=== PATIENT | female | born 1980 | race Caucasian/White ===

== ENCOUNTER 2016-10-12 07:46 | Emergency (ER) | payer MEDICAID ==
[~2016-10-12] VITALS: Ht 170.2 cm; Wt 60.0 kg
[~2016-10-12 07:46] MED LIST: ACYC400T PO; COMPTAB16 PO; DIFL150T PO; IBUP800T23 PO
[2016-10-12 07:49] VITALS: BP 119/67; PULSE 104; RESP 16; TEMP 98.4; O2SAT 98
[2016-10-12] MEDS ORDERED: FERR325T15 PO (08:29)
[2016-10-12] MEDS ORDERED: ALBU6.7H INH (08:31)
[2016-10-12] MEDS ORDERED: ONDA1TAB17 PO (08:31)
[2016-10-12] MEDS ORDERED: LEVO500T3 PO (08:31)
[2016-10-12] MEDS ORDERED: ACYC400T PO (08:31)
[2016-10-12] MEDS ORDERED: EMTR1TAB2 PO (08:31)
[2016-10-12] MEDS ORDERED: DAPS1TAB2 PO (08:31)
[2016-10-12] MEDS ORDERED: SODIUM CHLORIDE 0.9% FLUSH 5 ML FLUSH IVF PRN (09:00)
[2016-10-12] MEDS ORDERED: SODIUM CHLOR 0.9% 1000 ML INJ 1,000 ML IV ONE (09:00)
[2016-10-12] MEDS ORDERED: KETOROLAC TROMETHAMINE 30 MG/ML (IVP) VIAL IV PUSH ONE (09:00)
[2016-10-12 09:53] VITALS: RESP 16; O2SAT 96
[2016-10-12 09:54] VITALS: BP_SYST 109; BP_SYST 111; BP_DIAS 56; BP_DIAS 59
[2016-10-12 10:38] LABS: APTT (PATIENT) 26.4 SEC (24.3-30.1)
[2016-10-12 10:41] LABS: AUTOMATED NEUTROPHIL # 4.7 TH/MM3 (1.8-7.7); BASOPHIL % 0.5 % (0.0-2.0); EOSINOPHIL % 0.1 % (0.0-4.0); HEMATOCRIT 35.7 % (35.0-46.0); LYMPH % 7.6 % (9.0-44.0); LYMPHOCYTE # 0.4 TH/MM3 (1.0-4.8); MEAN CORPUSCULAR HGB CONC 34.3 % (32.0-36.0); MONO % 8.9 % (0.0-8.0); NEUT % 82.9 % (16.0-70.0); PLATELET COUNT 130 TH/MM3 (150-450); RED CELL DISTRIBUTION WIDTH 13.2 % (11.6-17.2); WHITE BLOOD COUNT 5.6 TH/MM3 (4.0-11.0)
[2016-10-12] MEDS ORDERED: MORPHINE SULFATE 8 MG/ML INJ IV PUSH ONE (10:45)
[2016-10-12 10:48] LABS: BLOOD, URINE TRACE (NEG); GLUCOSE,URINE NEG (NEG); KETONE, URINE 40 mg/dL (NEG); NITRITE,URINE NEG (NEG); PH, URINE 6.5 (5.0-8.5); SQUAMOUS EPITHELIAL CELL URINE 1 /hpf (0-5); URINE COLOR LIGHT-YELLOW (YELLW/STRAW)
[2016-10-12 10:55] LABS: ANION GAP 7 MEQ/L (5-15); BICARBONATE 22.7 MEQ/L (21.0-32.0); BLOOD UREA NITROGEN 11 MG/DL (7-18); CHLORIDE 105 MEQ/L (98-107); GLOMERULAR FILTRATION RATE 75 ML/MIN (>89); POTASSIUM 3.4 MEQ/L (3.5-5.1); SODIUM (NA) 135 MEQ/L (136-145)
[2016-10-12 10:56] LABS: HEMO FLAGS AUTO DIFF
[2016-10-12 11:00] LABS: CREATINE KINASE 94 U/L (26-192)
[2016-10-12] MEDS ORDERED: IOHEXOL 350 MG/ML 10 ML VIAL (for RAD DIAG) IV ONE (11:15)
[2016-10-12 11:37] LABS: OVALOCYTES 1+ (NORMAL)
[2016-10-12 11:38] LABS: PLATELET ESTIMATE SMEAR LOW (NORMAL); PLATELET MORPHOLOGY NORMAL (NORMAL); SCAN/DIFF AUTO DIFF CONFIRMED
--- NOTE | 2016-10-12 11:38 | PD ---
HPI Chief Complaint: Cold / Flu Symptoms Time Seen by Provider: 08:39 Travel History International Travel<30 days: No Contact w/Intl Traveler<30days: No Traveled to known affect area: No History of Present Illness HPI Is a 36-year-old female presents emergency Department with a history of chest pain particularly when she takes deep breaths or Her Chest. Patient Does Have a History of HIV Followed by Dr. Wolff and States That Her Last Viral Load Was Undetectable and Her CD4 Count Was Normal. Patient went to her primary care physician's office yesterday and was diagnosed with bronchitis. Patient states she has chest x-ray which was clear. Patient states the pain is just persisting and came in to be seen. No history of early IN in her family no history of cocaine or amphetamine use. No high blood pressure high cholesterol. PFSH Past Medical History Asthma: No Autoimmune Disease: Yes ("HIV") Blood Disorders: No Anxiety: No Depression: No Heart Rhythm Problems: No Cancer: No Cardiovascular Problems: No High Cholesterol: No Chemotherapy: No Chest Pain: No Congestive Heart Failure: No COPD: No Diabetes: No Diminished Hearing: No Endocrine: No Gastrointestinal Disorders: Yes (NAUSEA) Genitourinary: No Hepatitis: No Hiatal Hernia: No Immune Disorder: Yes (HIV) Musculoskeletal: No Neurologic: No Psychiatric: No Reproductive: Yes (CYSTS) Respiratory: No Radiation Therapy: No Sleep Apnea: No Thyroid Disease: No ?: Not : 1 Para: 1 Miscarriage: 1 Past Surgical History AICD: No Genitourinary Surgery: Yes (COLONOSCOPY) Hysterectomy: Yes Joint Replacement: No Pacemaker: No Other Surgery: Yes (COLONOSCOPY W/P REMOVAL/BENIGN) Social History Alcohol Use: Yes (OCCASIONAL) Tobacco Use: No Substance Use: Yes (OCCASIONAL MARIJUANA ) Allergies-Medications (Allergen,Severity, Reaction): Coded Allergies: Bactrim (Verified Allergy, Intermediate, Nausea/Vomiting, 10/12/16) Reported Meds & Prescriptions Reported Meds & Active Scripts Active Reported Dapsone 100 Mg Tab 100 Mg PO DAILY Proventil Hfa 6.7 GM Inh (Albuterol Sulfate) 90 Mcg/Act Aer 2 Puff INH Q6H PRN Acyclovir 400 Mg Tab 400 Mg PO DAILY Ondansetron (Ondansetron HCl) 8 Mg Tab 4 Mg PO BID PRN Levofloxacin 500 Mg Tab 500 Mg PO DAILY Odefsey (Qpxdkwmzpqmex-Jgxwwzuziou-Yeklognen Alafenam) 200-200-25 Mg Tab 1 Tab PO DAILY Ferretts (Ferrous Fumarate) 325 Mg Tab 325 Mg PO DAILY Review of Systems Except as stated in HPI: all other systems reviewed are Neg Physical Exam Narrative GENERAL: Well-developed well-nourished no apparent distress. SKIN: Warm and dry. HEAD: Atraumatic. Normocephalic. EYES: Pupils equal and round. No scleral icterus. No injection or drainage. ENT: No nasal bleeding or discharge. Mucous membranes pink and moist. NECK: Trachea midline. No JVD. CARDIOVASCULAR: Minimally tachycardic with regular rhythm. No murmur appreciated. RESPIRATORY: No accessory muscle use. Clear to auscultation. Breath sounds equal bilaterally. GASTROINTESTINAL: Abdomen soft, non-tender, nondistended. Hepatic and splenic margins not palpable. MUSCULOSKELETAL: No obvious deformities. No clubbing. No cyanosis. No edema. NEUROLOGICAL: Awake and alert. No obvious cranial nerve deficits. Motor grossly within normal limits. Normal speech. PSYCHIATRIC: Appropriate mood and affect; insight and judgment normal. Data Data Last Documented VS Vital Signs Date Time Temp Pulse Resp B/P Pulse Ox O2 Delivery O2 Flow Rate FiO2 10/12/16 09:54 95 Room Air 10/12/16 09:54 111/56 109/59 10/12/16 09:53 16 10/12/16 07:49 98.4 104 Orders Electrocardiogram (10/12/16 08:50) Basic Metabolic Panel (Bmp) (10/12/16 08:50) Ckmb (Isoenzyme) Profile (10/12/16 08:50) Complete Blood Count With Diff (10/12/16 08:50) Magnesium (Mg) (10/12/16 08:50) Prothrombin Time / Inr (Pt) (10/12/16 08:50) Act Partial Throm Time (Ptt) (10/12/16 08:50) Troponin I (10/12/16 08:50) Ecg Monitoring (10/12/16 08:50) Bilateral Bp Monitoring (10/12/16 08:50) Iv Access Insert/Monitor (10/12/16 08:50) Oximetry (10/12/16 08:50) Oxygen Administration (10/12/16 08:50) Sodium Chloride 0.9% Flush (Ns Flush) (10/12/16 09:00) Ct Pulmonary Angiogram (10/12/16 08:50) Ketorolac Inj (Toradol Inj) (10/12/16 09:00) Sodium Chlor 0.9% 1000 Ml Inj (Ns 1000 M (10/12/16 09:00) Ua Includes Microscopic (10/12/16 09:26) Ed Urine Pregnancytest Poc (10/12/16 09:26) Morphine Inj (Morphine Inj) (10/12/16 10:45) Labs Laboratory Tests Test 10/12/16 09:50 White Blood Count 5.6 TH/MM3 Red Blood Count 3.40 MIL/MM3 Hemoglobin 12.2 GM/DL Hematocrit 35.7 % Mean Corpuscular Volume 105.0 FL Mean Corpuscular Hemoglobin 36.0 PG Mean Corpuscular Hemoglobin 34.3 % Concent Red Cell Distribution Width 13.2 % Platelet Count 130 TH/MM3 Mean Platelet Volume 9.8 FL Neutrophils (%) (Auto) 82.9 % Lymphocytes (%) (Auto) 7.6 % Monocytes (%) (Auto) 8.9 % Eosinophils (%) (Auto) 0.1 % Basophils (%) (Auto) 0.5 % Neutrophils # (Auto) 4.7 TH/MM3 Lymphocytes # (Auto) 0.4 TH/MM3 Monocytes # (Auto) 0.5 TH/MM3 Eosinophils # (Auto) 0.0 TH/MM3 Basophils # (Auto) 0.0 TH/MM3 CBC Comment AUTO DIFF Differential Comment AUTO DIFF CONFIRMED Platelet Estimate LOW Platelet Morphology Comment NORMAL Ovalocytes 1+ Prothrombin Time 11.0 SEC Prothromb Time International 1.0 RATIO Ratio Activated Partial 26.4 SEC Thromboplast Time Urine Color LIGHT-YELLOW Urine Turbidity CLEAR Urine pH 6.5 Urine Specific [place] 1.005 Urine Protein NEG mg/dL Urine Glucose (UA) NEG mg/dL Urine Ketones 40 mg/dL Urine Occult Blood TRACE Urine Nitrite NEG Urine Bilirubin NEG Urine Urobilinogen LESS THAN 2.0 MG/DL Urine Leukocyte Esterase NEG Urine RBC 1 /hpf Urine WBC LESS THAN 1 /hpf Urine Squamous Epithelial 1 /hpf Cells Sodium Level 135 MEQ/L Potassium Level 3.4 MEQ/L Chloride Level 105 MEQ/L Carbon Dioxide Level 22.7 MEQ/L Anion Gap 7 MEQ/L Blood Urea Nitrogen 11 MG/DL Creatinine 0.87 MG/DL Estimat Glomerular Filtration 75 ML/MIN Rate Random Glucose 89 MG/DL Calcium Level 8.6 MG/DL Magnesium Level 2.0 MG/DL Total Creatine Kinase 94 U/L Troponin I LESS THAN 0.02 NG/ML MDM Medical Decision Making Medical Screen Exam Complete: Yes Emergency Medical Condition: Yes Interpretation(s) EKG shows normal sinus rhythm normal axis normal R-wave progression. No concerning ST T changes. Somewhat limited by motion artifact. The borderline EKG. Differential Diagnosis PE, pneumonia, PCP, neutropenia, bronchitis, Narrative Course Patient was roomed in the emergency department, she appears well and nontoxic appearance. Skin by me to be resting very comfortably but does continue to complain of pain. She was given pain medicine in the emergency department. Workup including chest x-ray CT pulmonary embolism and lab work is reassuring. Troponin negative. No neutropenia. Patient is not taking any illicit drugs denies any cocaine or other stimulant use. Discussed importance of continuing smoking cessation. At this point she is stable for discharge having excluded acute medical emergencies. Discussed need for close follow-up with her primary care physician or infectious disease officer for further workup as an outpatient. Discussed return to ED criteria. Diagnosis Primary Impression: Atypical chest pain Additional Impression: Bronchitis Additional Instructions: Follow-up with your regular physician by phone today, ibuprofen as needed for pain. Continue antibiotics until they're gone. There is no evidence of pneumonia or blood clots in her CAT scan. Disposition: 01 DISCHARGE HOME Condition: Stable Leon Calixto MD Oct 12, 2016 11:38
--- NOTE | 2016-10-12 11:39 | RADRPT ---
EXAM DATE/TIME: 10/12/2016 11:15 [facility] COMPARISON: No previous studies available for comparison. INDICATIONS : Right side chest pain with shortness of breath. IV CONTRAST: 50 cc Omnipaque 350 (iohexol) IV RADIATION DOSE: 5.35 CTDIvol (mGy) MEDICAL HISTORY : None SURGICAL HISTORY : Hysterectomy. ENCOUNTER: Initial ACUITY: 3 days PAIN SCALE: 5/10 LOCATION: Right TECHNIQUE: Volumetric scanning of the chest was performed using a pulmonary embolism protocol MIP images were re constructed. Using automated exposure control and adjustment of the mA and/or kV according to patien t size, radiation dose was kept as low as reasonably achievable to obtain optimal diagnostic quality images. FINDINGS: PULMONARY ARTERIES: No filling defects are seen in the pulmonary arteries through the segmental level. LUNGS: There is no consolidation or pneumothorax . No concerning pulmonary nodule is visualized. PLEURAE: There is no pleural thickening or pleural effusion. MEDIASTINUM: There is good visualization of the great vessels of the middle mediastinum. No evidence of mediastin al or hilar adenopathy/mass. MUSCULOSKELETAL: Within normal limits for patient age. MISCELLANEOUS: The visualized upper abdominal organs demonstrate no acute abnormality. CONCLUSION: Negative study with no evidence of pulmonary embolism. Scotty Shaikh MD on October 12, 2016 at 11:34 Board Certified Radiologist. This report was verified electronically.
--- NOTE | 2016-10-12 16:51 | EKG ---
Date Performed: 10/12/2016 Time Performed: 09:49:22 PTAGE: 36 years EKG: Sinus rhythm POSSIBLE RIGHT VENTRICULAR CONDUCTION DELAY NONSPECIFIC ST & T-WAVE ABNORMALITY BORDERLINE ECG PREVIOUS TRACING : 04/28/[address] depression compared to previous tracing. Cannot ru le out ischemia. DOCTOR: Mahesh Donaldson Interpretating Date/Time 10/12/2016 16:49:21
[2017-02-20] MEDS ORDERED: EMTR1TAB2 PO (09:22)
== END 2016-10-12 12:21 | disposition home or self-care (01) ==
LOC: NEPE 07:46
DX: R07.89 Other chest pain (principal); B20 Human immunodeficiency virus [HIV] disease; J40 Bronchitis, not specified as acute or chronic; R94.31 Abnormal electrocardiogram [ECG] [EKG]
CPT/HCPCS: 71275; 80048; 81001; 82550; 83735; 84484; 84703; 85025; 85610; 85730; 93005; 96361; 96374; 96375; 99285; J1885; J2270; J7030; Q9967

== ENCOUNTER 2017-09-30 17:23 | Inpatient (IN) | payer OTHER ==
[~2017-09-30] VITALS: Ht 170.2 cm; Wt 56.2 kg
[~2017-09-30 17:23] MED LIST changes: -COMPTAB16 PO; -DIFL150T PO; +EMTR1TAB2 PO; +FERR325T15 PO; +IBUP1TAB7 PO; -IBUP800T23 PO; +MEDR4PAK PO; +METR1TAB76 PO; +ONDA8TAB7 PO
[2017-09-30 17:30] VITALS: BP 136/72; PULSE 68; RESP 18; TEMP 98.1; O2SAT 98
--- NOTE | 2017-09-30 18:08 | PD ---
HPI Chief Complaint: Psychiatric Symptoms Time Seen by Provider: 17:52 Travel History International Travel<30 days: No Contact w/Intl Traveler<30days: No Traveled to known affect area: No History of Present Illness HPI Examined in the presence of a female nurse at all times. This is a 37-year-old female with history of HIV who presents under a Vasquez act initiated by the police department. According to the paperwork the patient threatened end her life by jumping off a bridge. The patient reports that she has been depressed for the past several months. She has been attempting to get referred to a therapist by her primary care physician but this is not materialized. Today she had some sort of argument with her mother. According to the nurse the police reported that there were text messages from the patient to the mother saying that she was going to kill herself. The patient is currently denying this. She reports that she went to the bridge in order to get some exercise. She denies any suicidal ideation. She endorses occasional marijuana use. Denies any other illicit drug use. She has no medical complaints at this time. PFSH Past Medical History Asthma: No Autoimmune Disease: Yes ("HIV") Blood Disorders: No Anxiety: No Depression: No Heart Rhythm Problems: No Cancer: No Cardiovascular Problems: No High Cholesterol: No Chemotherapy: No Chest Pain: No Congestive Heart Failure: No COPD: No Diabetes: No Diminished Hearing: No Endocrine: No Gastrointestinal Disorders: Yes (NAUSEA) Genitourinary: No Hepatitis: No Hiatal Hernia: No Immune Disorder: Yes (HIV) Musculoskeletal: No Neurologic: No Psychiatric: No Reproductive: Yes (CYSTS) Respiratory: No Radiation Therapy: No Sleep Apnea: No Thyroid Disease: No ?: Not : 1 Para: 1 Miscarriage: 1 Past Surgical History AICD: No Genitourinary Surgery: Yes (COLONOSCOPY) Hysterectomy: Yes Joint Replacement: No Pacemaker: No Other Surgery: Yes (COLONOSCOPY W/P REMOVAL/BENIGN) Social History Alcohol Use: Yes (OCCASIONAL) Tobacco Use: Yes Substance Use: Yes (OCCASIONAL MARIJUANA ) Allergies-Medications (Allergen,Severity, Reaction): Coded Allergies: sulfamethoxazole (Unverified Allergy, Intermediate, Nausea/Vomiting, ) trimethoprim (Unverified Allergy, Intermediate, Nausea/Vomiting, 05/29/17) Reported Meds & Prescriptions Reported Meds & Active Scripts Active Metronidazole 500 Mg Tab 500 Mg PO BID Ibuprofen 800 Mg Tab 800 Mg PO Q6HR PRN Medrol Dosepak (Methylprednisolone) 4 Mg Dspk 4 Mg PO DIRECTED Per Pharmacist direction Reported Jama (Hcziaywlimdfi-Ndajdlhhucv-Scbhjgodo Alafenam) 200-200-25 Mg Tab 1 Tab PO DAILY Acyclovir 400 Mg Tab 400 Mg PO DAILY Ondansetron (Ondansetron HCl) 8 Mg Tab 4 Mg PO BID PRN Ferretts (Ferrous Fumarate) 325 Mg Tab 325 Mg PO DAILY Review of Systems Except as stated in HPI: all other systems reviewed are Neg Physical Exam Narrative GENERAL: Well-developed well-nourished female in no acute distress SKIN: Warm and dry. HEAD: Atraumatic. Normocephalic. EYES: Pupils equal and round. No scleral icterus. No injection or drainage. ENT: No nasal bleeding or discharge. Mucous membranes pink and moist. NECK: Trachea midline. No JVD. CARDIOVASCULAR: Regular rate and rhythm. No murmur appreciated. RESPIRATORY: No accessory muscle use. Clear to auscultation. Breath sounds equal bilaterally. GASTROINTESTINAL: Abdomen soft, non-tender, nondistended. Hepatic and splenic margins not palpable. MUSCULOSKELETAL: No obvious deformities. No clubbing. No cyanosis. No edema. NEUROLOGICAL: Awake and alert. No obvious cranial nerve deficits. Motor grossly within normal limits. Normal speech. PSYCHIATRIC: Anxious, tearful. Data Data Last Documented VS Vital Signs Date Time Temp Pulse Resp B/P (MAP) Pulse Ox O2 Delivery O2 Flow Rate FiO2 09/30/17 17:30 98.1 68 18 136/72 (93) 98 Orders Orders Complete Blood Count With Diff (09/30/17 17:52) Comprehensive Metabolic Panel (09/30/17 17:52) Thyroid Stimulating Hormone (09/30/17 17:52) Ed Urine Pregnancytest Poc (09/30/17 17:52) Psych Screen (09/30/17 17:52) Drug Screen, Random Urine (09/30/17 17:52) Alcohol (Ethanol) (09/30/17 17:52) Labs Laboratory Tests Test 09/30/17 18:05 09/30/17 18:11 White Blood Count 7.8 TH/MM3 Red Blood Count 3.47 MIL/MM3 Hemoglobin 12.1 GM/DL Hematocrit 35.6 % Mean Corpuscular Volume 102.7 FL Mean Corpuscular Hemoglobin 34.8 PG Mean Corpuscular Hemoglobin Concent 33.9 % Red Cell Distribution Width 13.5 % Platelet Count 178 TH/MM3 Mean Platelet Volume 8.1 FL Neutrophils (%) (Auto) 71.8 % Lymphocytes (%) (Auto) 19.1 % Monocytes (%) (Auto) 8.2 % Eosinophils (%) (Auto) 0.5 % Basophils (%) (Auto) 0.4 % Neutrophils # (Auto) 5.6 TH/MM3 Lymphocytes # (Auto) 1.5 TH/MM3 Monocytes # (Auto) 0.6 TH/MM3 Eosinophils # (Auto) 0.0 TH/MM3 Basophils # (Auto) 0.0 TH/MM3 CBC Comment DIFF FINAL Differential Comment Blood Urea Nitrogen 23 MG/DL Creatinine 0.94 MG/DL Random Glucose 86 MG/DL Total Protein 7.9 GM/DL Albumin 4.8 GM/DL Calcium Level 9.0 MG/DL Alkaline Phosphatase 54 U/L Aspartate Amino Transf (AST/SGOT) 11 U/L Alanine Aminotransferase (ALT/SGPT) 9 U/L Total Bilirubin 2.0 MG/DL Sodium Level 138 MEQ/L Potassium Level 3.5 MEQ/L Chloride Level 107 MEQ/L Carbon Dioxide Level 23.2 MEQ/L Anion Gap 8 MEQ/L Estimat Glomerular Filtration Rate 68 ML/MIN Thyroid Stimulating Hormone 3rd Gen 1.280 uIU/ML Ethyl Alcohol Level LESS THAN 3 MG/DL Urine Opiates Screen NEG Urine Barbiturates Screen NEG Urine Amphetamines Screen NEG Urine Benzodiazepines Screen NEG Urine Cocaine Screen NEG Urine Cannabinoids Screen POS MDM Medical Decision Making Medical Screen Exam Complete: Yes Emergency Medical Condition: Yes Medical Record Reviewed: Yes Differential Diagnosis Major depressive disorder, depressive disorder not otherwise specified, acute psychosis, substance induced mood disorder, adjustment reaction Narrative Course 37-year-old female presents under a Vasquez act for evaluation of suicidal statements. Mental health screening discussed with the patient. Psychiatric screen ordered. Drug screen positive for cannabinoids. Diagnosis Primary Impression: Medical clearance for psychiatric admission Alfred Jacobs Sep 30, 2017 18:08
[2017-09-30 18:43] LABS: AUTOMATED NEUTROPHIL # 5.6 TH/MM3 (1.8-7.7); BASOPHIL % 0.4 % (0.0-2.0); EOSINOPHIL % 0.5 % (0.0-4.0); HEMATOCRIT 35.6 % (35.0-46.0); HEMOGLOBIN 12.1 GM/DL (11.6-15.3); LYMPH % 19.1 % (9.0-44.0); LYMPHOCYTE # 1.5 TH/MM3 (1.0-4.8); MEAN CELL VOLUME 102.7 FL (80.0-100.0); MEAN CORPUSCULAR HEMOGLOBIN 34.8 PG (27.0-34.0); MEAN CORPUSCULAR HGB CONC 33.9 % (32.0-36.0); MEAN PLATELET VOLUME 8.1 FL (7.0-11.0); MONO % 8.2 % (0.0-8.0); MONOCYTE # 0.6 TH/MM3 (0-0.9); NEUT % 71.8 % (16.0-70.0); PLATELET COUNT 178 TH/MM3 (150-450); RED BLOOD COUNT 3.47 MIL/MM3 (4.00-5.30); RED CELL DISTRIBUTION WIDTH 13.5 % (11.6-17.2); WHITE BLOOD COUNT 7.8 TH/MM3 (4.0-11.0)
[2017-09-30 18:55] LABS: ALBUMIN 4.8 GM/DL (3.4-5.0); ALT (GPT) 9 U/L (10-53); AST (GOT) 11 U/L (15-37); BICARBONATE 23.2 MEQ/L (21.0-32.0); BLOOD UREA NITROGEN 23 MG/DL (7-18); CHLORIDE 107 MEQ/L (98-107); CREATININE 0.94 MG/DL (0.50-1.00); GLOMERULAR FILTRATION RATE 68 ML/MIN (>89); GLUCOSE,RANDOM 86 MG/DL (74-106); SODIUM (NA) 138 MEQ/L (136-145)
[2017-09-30 19:05] LABS: ALKALINE PHOSPHATASE 54 U/L (45-117); TOTAL PROTEIN 7.9 GM/DL (6.4-8.2)
[2017-09-30] MEDS ORDERED: COMPLERA PO (21:19)
[2017-09-30] MEDS ORDERED: DAPS1TAB2 PO (21:19)
[2017-09-30 22:11] VITALS: BP 114/58; PULSE 84; RESP 18; TEMP 98.5; O2SAT 95
[2017-09-30] MEDS ORDERED: LORazepam 2 MG/ML VIAL IM PRN (23:00)
[2017-09-30] MEDS ORDERED: MAGNESIUM HYDROXIDE SUSP 30 ML CUP PO PRN (23:00)
[2017-09-30] MEDS ORDERED: diphenhydrAMINE HCL 50 MG CAP - HS PRN PO (23:00)
[2017-09-30] MEDS ORDERED: diphenhydrAMINE HCL 50 MG/ML VIAL - HS PRN IM (23:00)
[2017-09-30] MEDS ORDERED: LORazepam 1 MG TAB PO PRN (23:00)
[2017-09-30] MEDS ORDERED: ONDANSETRON ODT 4 MG TAB PO PRN (23:00)
[2017-09-30] MEDS ORDERED: ALUMINUM/MAGNESIUM/SIMETH 30 ML CUP PO PRN (23:00)
[2017-09-30 23:38] VITALS: BP 107/69; PULSE 80; RESP 16; TEMP 98.3; O2SAT 95
[2017-10-01] MEDS: ACETAMINOPHEN 325 MG TAB PO PRN ×2 (00:22→08:55)
[2017-10-01] MEDS ORDERED: DAPSONE 100 MG TAB PO SCH (09:00)
[2017-10-01] MEDS ORDERED: EMTRICITABINE PO SCH (09:00)
[2017-10-01] MEDS ORDERED: FERROUS FUMARATE 325 MG TAB (106 MG ELEMENTAL IRON) PO SCH (09:00)
[2017-10-01] MEDS ORDERED: RILPIVIRINE PO SCH (09:00)
[2017-10-01] MEDS ORDERED: TENOFOVIR DISOPROXIL FUMARATE PO SCH (09:00)
[2017-10-01] MEDS ORDERED: ACYCLOVIR 200 MG CAP PO SCH (09:00)
[2017-10-01 09:15] LABS: CHOLESTEROL 171 MG/DL (120-200)
[2017-10-01 09:18] LABS: CHOLESTEROL/ HDL RATIO 3.35 RATIO; LDL CHOLESTEROL 106 MG/DL (0-99); TRIGLYCERIDES 71 MG/DL (42-150)
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
[2017-10-01 16:24] LABS: HEMOGLOBIN A1C 4.3 % (4.3-6.0)
== END 2017-10-01 13:50 | disposition home or self-care (01) | DRG 882 ==
LOC: NEDAMB 17:23 → NEDA 22:09 → H260 22:22
PROVIDERS: ADMIT Psychiatry & Neurology Psychiatry; ATTEND Psychiatry & Neurology Psychiatry
DX: F43.20 Adjustment disorder, unspecified (principal); Z88.1 Allergy status to other antibiotic agents; Z88.2 Allergy status to sulfonamides
CPT/HCPCS: 80053; 80061; 80307; 83036; 84443; 84703; 85025